=== PATIENT | male | born 1990 | race Caucasian/White ===

== ENCOUNTER → 2016-07-15 | Outpatient (CLI) | payer OTHER ==
[~2016-07-15] MED LIST: ALBUTEROL2.5 MG/0.5 INH; FLOMAX0.4 MG PO; TYLENOL WITH C1 EACH PO; ULTRAM50 MG PO; ZANTAC (NON-FO150 MG PO
== END ==
LOC: GRAD 08:30
DX: I63.9 Cerebral infarction, unspecified (principal)